=== PATIENT | male | born 1955 | race Caucasian/White ===

== ENCOUNTER 2017-03-13 12:20 | Emergency (ER) | payer OTHER ==
[~2017-03-13] VITALS: Ht 167.6 cm; Wt 70.8 kg
[2017-03-13] MEDS ORDERED: PROVENTIL HFA6.7 G1 INH (13:30)
[2017-03-13] MEDS ORDERED: OSELB75 PO (13:30)
== END 2017-03-13 14:15 | disposition home or self-care (01) ==
LOC: ER 12:20
DX: J11.1 Influenza due to unidentified influenza virus with other respiratory manifestations (principal); F20.9 Schizophrenia, unspecified

== ENCOUNTER → 2017-08-25 | Outpatient (CLI) | payer OTHER ==
[~2017-08-25] MED LIST: OSELB75 PO; PROVENTIL HFA6.7 G1 INH
== END ==
LOC: ULTRA 06:46
DX: R10.9 Unspecified abdominal pain (principal); R63.4 Abnormal weight loss; R14.0 Abdominal distension (gaseous); I70.0 Atherosclerosis of aorta

== ENCOUNTER 2018-01-14 10:08 | Emergency (ER) | payer OTHER ==
[~2018-01-14] VITALS: Ht 177.8 cm; Wt 70.3 kg
[2018-01-14] MEDS ORDERED: GEODON80 MG PO (10:34)
[2018-01-14] MEDS ORDERED: ALLOPURINOL 10100 M3 PO (10:35)
[2018-01-14 10:49] LABS: URINE BILIRUBIN NEGATIVE (Negative); URINE BLOOD 3+ (Negative); URINE CLARITY CLOUDY; URINE COLOR AMBER; URINE GLUCOSE-RANDOM* NEGATIVE (Negative); URINE KETONES NEGATIVE (Negative); URINE LEUKOCYTES-REFLEX 1+ (Negative); URINE NITRITE-REFLEX NEGATIVE (Negative); URINE PROTEIN (DIPSTICK) 2+ (Negative); URINE SPECIFIC GRAVITY >= 1.030 (1.005-1.035); URINE UROBILINOGEN 0.2 E.U./dl (0.2-1.0)
[2018-01-14 10:58] LABS: CASTS None Seen /LPF (None Seen); CRYSTALS None Seen /LPF (None Seen); SQUAMOUS 0-3 Few /LPF (0-3); URINE RBC >20 Many /HPF (0-2); URINE WBC-REFLEX >25 Many /HPF (0-5)
[2018-01-14 10:59] LABS: BACTERIA-REFLEX >30 Many /HPF (None Seen); YEAST-REFLEX Present (None Seen)
[2018-01-14] MEDS ORDERED: DIFLUCAN200 MG PO (11:09)
[2018-01-14] MEDS ORDERED: KEFLEX500 M1 PO (11:09)
== END 2018-01-14 11:42 | disposition home or self-care (01) ==
LOC: ER 10:08
PROVIDERS: Nurse Practitioner Family
DX: N39.0 Urinary tract infection, site not specified (principal); B37.9 Candidiasis, unspecified; K59.00 Constipation, unspecified; F20.9 Schizophrenia, unspecified

== ENCOUNTER 2018-06-21 08:39 | Emergency (ER) | payer OTHER ==
[~2018-06-21] VITALS: Ht 177.8 cm; Wt 72.6 kg
[~2018-06-21 08:39] MED LIST changes: +ALLOPURINOL 10100 M3 PO; +DIFLUCAN200 MG PO; +GEODON80 MG PO; +KEFLEX500 M1 PO
[2018-06-21] MEDS ORDERED: INDOMETHACIN 5050 M1 PO (09:03)
[2018-06-21 09:23] LABS: ABSOLUTE NEUTROPHILS 16.4 thou/uL (1.4-8.2); BASOPHILS 0.3 % (0.0-2.0); EOSINOPHILS 0.2 % (0.0-3.0); HEMATOCRIT 40.4 % (42.0-52.0); HEMOGLOBIN 13.8 gm/dL (14.0-18.0); LYMPHOCYTES 2.8 % (24.0-44.0); MCH 29.6 pg (26.0-34.0); MCHC 34.2 g/dL (28.0-37.0); MCV 86.7 fL (80.0-100.0); MONOCYTES 4.2 % (1.0-8.0); PLATELET COUNT 235 thou/uL (150-400); POLYS 92.5 % (36.0-66.0); RBC 4.66 mil/uL (4.50-6.00); RDW 13.3 % (10.5-14.5); WBC 17.7 thou/uL (4.0-11.0)
[2018-06-21 09:28] LABS: URINE BILIRUBIN NEGATIVE (Negative); URINE BLOOD 3+ (Negative); URINE CLARITY CLEAR; URINE COLOR YELLOW; URINE GLUCOSE-RANDOM* NEGATIVE (Negative); URINE KETONES NEGATIVE (Negative); URINE LEUKOCYTES-REFLEX NEGATIVE (Negative); URINE NITRITE-REFLEX NEGATIVE (Negative); URINE PROTEIN (DIPSTICK) NEGATIVE (Negative); URINE SPECIFIC GRAVITY 1.015 (1.005-1.035); URINE UROBILINOGEN 0.2 E.U./dl (0.2-1.0)
[2018-06-21 09:31] LABS: CALCIUM 9.4 mg/dL (8.5-10.1); CREATININE 0.9 mg/dL (0.7-1.3); POTASSIUM 3.7 mmol/L (3.5-5.1)
[2018-06-21 09:37] LABS: ALBUMIN 3.9 g/dL (3.4-5.0); TOTAL BILIRUBIN 0.4 mg/dL (<0.1-1.0); TOTAL PROTEIN 7.5 g/dL (6.4-8.2)
[2018-06-21 09:38] LABS: BACTERIA-REFLEX 1-9 Few /HPF (None Seen); CASTS None Seen /LPF (None Seen); CRYSTALS None Seen /LPF (None Seen); SQUAMOUS None Seen /LPF (0-3); URINE WBC-REFLEX 0-5 Rare /HPF (0-5)
[2018-06-21] MEDS ORDERED: AMOXICILLIN875 MG PO (10:24)
[2018-06-21] MEDS ORDERED: TRAMADOL 50 MG50 MG PO (10:24)
[2018-06-21 10:49] VITALS: BP 107/56
== END 2018-06-21 10:51 | disposition home or self-care (01) ==
LOC: ER 08:39
PROVIDERS: Emergency Medicine
DX: D72.829 Elevated white blood cell count, unspecified (principal); N32.89 Other specified disorders of bladder; R31.9 Hematuria, unspecified; K62.89 Other specified diseases of anus and rectum; J02.0 Streptococcal pharyngitis; F20.9 Schizophrenia, unspecified

== ENCOUNTER 2020-07-28 11:54 | Emergency (ER) | payer OTHER ==
[~2020-07-28] VITALS: Ht 177.8 cm; Wt 74.8 kg
[~2020-07-28 11:54] MED LIST changes: +AMOXICILLIN875 MG PO; +INDOMETHACIN 5050 M1 PO; +TRAMADOL 50 MG50 MG PO
[2020-07-28 11:58] VITALS: BP 122/73
[2020-07-28] MEDS ORDERED: FLOMAX0.4 MG PO (12:18)
[2020-07-28 13:01] LABS: BASOPHILS 0.5 % (0.0-2.0); EOSINOPHILS 0.8 % (0.0-3.0); HEMATOCRIT 41.1 % (42.0-52.0); HEMOGLOBIN 13.6 gm/dL (14.0-18.0); LYMPHOCYTES 9.8 % (24.0-44.0); MCH 29.5 pg (26.0-34.0); MCV 89.6 fL (80.0-100.0); MONOCYTES 6.8 % (1.0-8.0); PLATELET COUNT 266 thou/uL (150-400); POLYS 82.1 % (36.0-66.0); RBC 4.59 mil/uL (4.50-6.00); RDW 13.1 % (10.5-14.5); WBC 7.3 thou/uL (4.0-11.0)
[2020-07-28 13:07] LABS: CALCIUM 9.2 mg/dL (8.5-10.1); CREATININE 0.9 mg/dL (0.7-1.3); POTASSIUM 4.2 mmol/L (3.5-5.1)
[2020-07-28 13:13] LABS: ALBUMIN 3.8 g/dL (3.4-5.0); TOTAL BILIRUBIN 0.4 mg/dL (0.2-1.0); TOTAL PROTEIN 7.5 g/dL (6.4-8.2)
[2020-07-28 13:48] LABS: URINE BILIRUBIN NEGATIVE (Negative); URINE BLOOD NEGATIVE (Negative); URINE CLARITY CLEAR; URINE COLOR YELLOW; URINE GLUCOSE-RANDOM* NEGATIVE (Negative); URINE KETONES NEGATIVE (Negative); URINE LEUKOCYTES-REFLEX NEGATIVE (Negative); URINE NITRITE-REFLEX NEGATIVE (Negative); URINE PROTEIN (DIPSTICK) NEGATIVE (Negative); URINE SPECIFIC GRAVITY <= 1.005 (1.005-1.035); URINE UROBILINOGEN 0.2 E.U./dl (0.2-1.0)
[2020-07-28] MEDS ORDERED: COLACE100 MG PO (14:15)
[2020-07-28] MEDS ORDERED: METHOCARBAMOL500 M2 PO (14:15)
== END 2020-07-28 14:57 | disposition home or self-care (01) ==
LOC: ER 11:54
PROVIDERS: Nurse Practitioner Family
DX: F20.9 Schizophrenia, unspecified (principal); Z79.899 Other long term (current) drug therapy; K59.00 Constipation, unspecified; R10.11 Right upper quadrant pain

== ENCOUNTER → 2021-02-04 | Outpatient (CLI) | payer OTHER ==
[~2021-02-04] MED LIST changes: +COLACE100 MG PO; +FLOMAX0.4 MG PO; +METHOCARBAMOL500 M2 PO
== END ==
LOC: CAT 13:50
PROVIDERS: ATTEND Family Medicine
DX: Z13.6 Encounter for screening for cardiovascular disorders (principal); I25.10 Atherosclerotic heart disease of native coronary artery without angina pectoris; E78.00 Pure hypercholesterolemia, unspecified